=== PATIENT | female | born 1955 | race Caucasian/White ===

== ENCOUNTER 2017-07-20 08:23 | Day surgery (SDC) | payer BC ==
[2017-07-20] MEDS ORDERED: Lactated Ringers 1,000 ML IV SCH (08:30)
[2017-07-20] MEDS ORDERED: Propofol 200 MG/20 ML SDV ONE (09:15)
[2017-07-20] MEDS ORDERED: fentaNYL 100 MCG/2 ML SDV ONE (09:15)
[2017-07-20] MEDS ORDERED: Midazolam 1 MG/ML 2 ML SDV ONE (09:15)
--- NOTE | 2017-07-23 07:40 | OR ---
DATE OF PROCEDURE: 07/20/2017 PREOPERATIVE DIAGNOSES: Blood in the stool. Strong family history of colon cancer. Two siblings with colon cancer. Personal history of polyps. POSTOPERATIVE DIAGNOSES: Unremarkable colonoscopy. Mild hemorrhoids. Blood in the stool, etiology unknown. Strong family history of colon cancer. Two siblings with colon cancer. Personal history of polyps. PROCEDURE: Colonoscopy to the cecum. ANESTHESIA: IV anesthesia with monitored anesthesia care. INDICATIONS: This 62-year-old white female is referred for a colonoscopy because of blood in her stool. Additionally, she has two siblings with colon cancer, and she has a personal history of polyps. She says her last colonoscopic exam was done about three and a half years ago. I counseled her for the procedure, including risks and alternatives, and she gave her informed consent to proceed. DESCRIPTION OF PROCEDURE: The patient was placed in the left lateral decubitus position. IV anesthesia was administered by the Anesthesia Service. Time-out was held. A rectal exam was performed, which was unremarkable. The flexible video Olympus colonoscope was introduced through her anus, up her rectum, and out her colon, all the way to the cecum. Once the cecum was reached, the scope was slowly withdrawn, examining the mucosa throughout. No mucosal abnormalities were noted. The scope was retroflexed in the rectum with the distal rectum showing some minor hemorrhoidal tissue, otherwise unremarkable. The scope was straightened and removed. She tolerated the procedure well. Antonio Zhang MD /[id number]
== END 2017-07-20 11:11 | disposition home or self-care (01) ==
LOC: JP.SDS 08:23
PROVIDERS: ATTEND Surgery
DX: K64.9 Unspecified hemorrhoids (principal); I25.10 Atherosclerotic heart disease of native coronary artery without angina pectoris; K21.9 Gastro-esophageal reflux disease without esophagitis; M81.0 Age-related osteoporosis without current pathological fracture; Z80.0 Family history of malignant neoplasm of digestive organs; Z86.010 Personal history of colon polyps; Z88.0 Allergy status to penicillin; Z88.2 Allergy status to sulfonamides; Z88.8 Allergy status to other drugs, medicaments and biological substances
CPT/HCPCS: 45378; J2250; J2704; J3010; J7120